=== PATIENT | male | born 1980 | race African-American/Black ===

== ENCOUNTER 2019-08-23 11:43 | Emergency (ER) | payer OTHER, MEDICAID ==
[~2019-08-23] VITALS: Ht 167.6 cm; Wt 95.0 kg
[2019-08-23 12:59] VITALS: BP 133/88
== END 2019-08-23 13:42 | disposition left against medical advice (07) ==
LOC: ER 11:43
DX: Z53.21 Procedure and treatment not carried out due to patient leaving prior to being seen by health care provider (principal)

== ENCOUNTER 2019-08-31 09:28 | Emergency (ER) | payer OTHER, MEDICAID ==
[~2019-08-31] VITALS: Ht 167.6 cm; Wt 97.0 kg
[2019-08-31] MEDS ORDERED: TETANUS, DIPHTHERIA, PERTUSSIS VAC/PF 0.5ML (>7YR OLD) IM ONE (10:30)
[2019-08-31] MEDS ORDERED: KETOROLAC 60MG/2ML VIAL IM ONE (10:30)
[2019-08-31 12:02] VITALS: BP 130/82
== END 2019-08-31 12:02 | disposition home or self-care (01) ==
LOC: ER 09:28
DX: S61.432A Puncture wound without foreign body of left hand, initial encounter (principal); M54.5 Low back pain; W26.8XXA Contact with other sharp object(s), not elsewhere classified, initial encounter; Y93.89 Activity, other specified; Y92.89 Other specified places as the place of occurrence of the external cause; Y99.8 Other external cause status
CPT/HCPCS: 73130; 90471; 90715; 96372; 99283; J1885

== ENCOUNTER 2019-11-10 22:45 | Emergency (ER) | payer OTHER, MEDICAID ==
[~2019-11-10] VITALS: Ht 167.6 cm; Wt 97.5 kg
[2019-11-10 23:16] VITALS: BP 149/91
== END 2019-11-11 00:46 | disposition left against medical advice (07) ==
LOC: ER 22:45
DX: Z53.21 Procedure and treatment not carried out due to patient leaving prior to being seen by health care provider (principal)

== ENCOUNTER 2020-03-14 20:24 | Emergency (ER) | payer OTHER, MEDICAID ==
[~2020-03-14] VITALS: Ht 167.6 cm; Wt 100.0 kg
[2020-03-14] MEDS ORDERED: VISCOUS LIDOCAINE 2% 15 ML UDC PO ONE (22:15)
[2020-03-14] MEDS ORDERED: ASPIRIN 81MG TABLET PO ONE (22:15)
[2020-03-14] MEDS ORDERED: MAGNESIUM/ALUMINUM HYDROXIDE/SIMETHICONE 30ML UDC PO ONE (22:15)
[2020-03-14] MEDS ORDERED: KETOROLAC 60MG/2ML VIAL IM ONE (22:30)
[2020-03-14] MEDS ORDERED: KETOROLAC 30MG/ML VIAL IV ONE (22:30)
[2020-03-14 23:00] LABS: BASOPHILS % 0.9 % (0.0-2.0); EOSINOPHILS % 2.6 % (0.0-5.0); HEMATOCRIT. 42.2 % (42.0-52.0); HEMOGLOBIN. 14.2 g/dL (14.0-18.0); LYMPHOCYTES % 34.7 % (20.0-50.0); MEAN CORPUSCULAR HEMOGLOBIN 28.6 pg (28.0-32.0); MEAN CORPUSCULAR VOLUME 85.1 fL (80.0-94.0); MEAN PLATELET VOLUME 8.3 fl (7.4-10.4); NEUTROPHILS % 52.8 % (40.0-76.0); PLATELET 214 x1000/uL (130-400); RED BLOOD CELL COUNT 4.96 mill/uL (4.7-6.1); RED CELL DISTRIBUTION WIDTH 13.2 % (11.6-14.6)
[2020-03-14 23:08] LABS: CHLORIDE 104 mEq/L (98-107)
[2020-03-15 00:20] VITALS: BP 130/80
== END 2020-03-15 00:21 | disposition home or self-care (01) ==
LOC: ER 20:24
DX: M94.0 Chondrocostal junction syndrome [Tietze] (principal); F17.290 Nicotine dependence, other tobacco product, uncomplicated; F12.10 Cannabis abuse, uncomplicated
CPT/HCPCS: 36415; 71045; 80053; 83880; 84484; 85025; 93005; 96372; 99285; J1885; Z7610